=== PATIENT | male | born 2000 | race Caucasian/White ===

== ENCOUNTER 2018-05-07 21:28 | Emergency (ER) | payer MEDICAID ==
[~2018-05-07] VITALS: Ht 177.8 cm; Wt 64.5 kg
[2018-05-07 21:34] VITALS: Ht 177.8 cm; Wt 64.5 kg
[2018-05-07] MEDS ORDERED: ZOFRAN ODT4 MG/UDTAB PO (21:37)
[2018-05-07] MEDS ORDERED: ULTRAM50 MG PO (21:37)
[2018-05-07] MEDS ORDERED: KEFLEX500 MG PO (21:37)
[2018-05-07] MEDS ORDERED: NEOSPORIN OINTM15 GM TP (21:53)
[2018-05-07 22:25] VITALS: BP 110/78
== END 2018-05-07 22:05 | disposition home or self-care (01) ==
LOC: D.ER 21:28
DX: S90.811A Abrasion, right foot, initial encounter (principal); S90.414A Abrasion, right lesser toe(s), initial encounter; X58.XXXA Exposure to other specified factors, initial encounter; Y93.89 Activity, other specified; Y92.019 Unspecified place in single-family (private) house as the place of occurrence of the external cause; F17.200 Nicotine dependence, unspecified, uncomplicated